=== PATIENT | male | born 1950 | race Caucasian/White ===

== ENCOUNTER 2018-04-02 20:09 | Emergency (ER) | payer MEDICARE, OTHER, BC ==
[2018-04-02 20:24] VITALS: BP 144/70; PULSE 86; RESP 20; TEMP 98; O2SAT 95
--- NOTE | 2018-04-02 20:52 | PD ---
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 They are waiting on the pathology they are unsure as to whether it is cancerous or benign it was done by Dr. Bush at the outpatient urology and with [facility] surgery the bag had moments where did not drain prior to the patient being discharged but then apparently the back was draining it had been hematuria the entire time. Patient has no other prostate history he has no other problem with urology just the first time that he had a tumor discovered and now had the surgery today main complaint is obstruction drinking a lot of fluids to help relieve the symptoms however now his bladder is distended and there is no output for hours into his foot pain is localized suprapubically pressure-like worsening PFSH Past Medical History Cardiac Catheterization: Yes Cardiovascular Problems: Yes (STENTS) Diabetes: Yes Patient Takes Glucophage: Yes Diminished Hearing: Yes Hypertension: Yes Tetanus Vaccination: Unknown Influenza Vaccination: Yes Past Surgical History Cholecystectomy: Yes (2010) Coronary Stent: Yes (2015) Genitourinary Surgery: Yes (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 HEAD: Atraumatic. Normocephalic. EYES: Pupils equal and round. No scleral icterus. No injection or drainage. ENT: No nasal bleeding or discharge. Mucous membranes pink and moist. NECK: Trachea midline. No JVD. CARDIOVASCULAR: Regular rate and rhythm. RESPIRATORY: No accessory muscle use. Clear to auscultation. Breath sounds equal bilaterally. GASTROINTESTINAL: Abdomen--> tenderness to suprapubic area mildly distended Wisdom in penis clots irrigated MUSCULOSKELETAL: Extremities without clubbing, cyanosis, or edema. No obvious deformities. NEUROLOGICAL: Awake and alert. No obvious cranial nerve deficits. Motor grossly within normal limits. Five out of 5 muscle strength in the arms and legs. Normal speech. PSYCHIATRIC: Appropriate mood and affect; insight and judgment normal. Data Data Last Documented VS Vital Signs Date Time Temp Pulse Resp B/P (MAP) Pulse Ox O2 Delivery O2 Flow Rate FiO2 04/02/18 22:13 16 04/02/18 20:24 98.0 86 144/70 (94) 95 Orders Orders Urinary Catheter Insert/Apply (04/02/18 20:33) Urinalysis - C+S If Indicated (04/02/18 21:03) Morphine Inj (Morphine Inj) (04/02/18 21:45) MDM Medical Decision Making Medical Screen Exam Complete: Yes Emergency Medical Condition: Yes Medical Record Reviewed: Yes Differential Diagnosis Possible clot over his three-way Wisdom due to postprocedural bleeding versus Wisdom malfunction versus tumor obstruction versus vasospasm of the sphincter of the bladder versus clot inside the tubing of the Wisdom blocking the irrigation Narrative Course I changed his three-way Wisdom I irrigated in and pulled out a few clots with a 60 cc syringe clots in urine return after about an hour he has 200 cc of urine with tinges of red clots he feels much better I did a ultrasound of his abdomen there is no distention of his bladder minimal of 200 cc in the bladder see the Wisdom balloon on the ultrasound he is discharged follow-up with his urologist on Saturday I tell him call in the morning to let them know that he was in the ER tonight. Patient's abdomen is now soft nondistended he feels much better Diagnosis Primary Impression: Hematuria Qualified Codes: R31.9 - Hematuria, unspecified Additional Impression: Postoperative urinary retention Additional Instructions: Call your urologist in the morning let them know you are in the ER for urinary retention.. If the urine bag continues to drain clear urine follow-up with your appointment on Saturday. If you encounter any complications return immediately to the ER Disposition: 01 DISCHARGE HOME Condition: Good Thai Warren MD Apr 02, 2018 20:52
[2018-04-02] MEDS ORDERED: MORPHINE SULFATE 4 MG/ML INJ IV PUSH ONE (21:45)
[2018-04-02 22:13] VITALS: RESP 16
[2018-04-03 00:19] LABS: BACTERIA, URINE MOD /hpf; BILIRUBIN, URINE NEG (NEG); BLOOD, URINE LARGE (NEG); GLUCOSE,URINE NEG (NEG); KETONE, URINE NEG (NEG); MUCUS URINE FEW /lpf (OCC); NITRITE,URINE NEG (NEG); PH, URINE 6.5 (5.0-8.5); RENAL EPITHELIAL CELLS 7 /hpf; SQUAMOUS EPITHELIAL CELL URINE <1 /hpf (0-5); URINE LEUKOCYTE ESTERASE LARGE (NEG)
[2018-04-03 00:20] LABS: URINE COLOR RED (YELLW/STRAW)
== END 2018-04-02 23:45 | disposition home or self-care (01) ==
LOC: NEPE 20:09
DX: N99.89 Other postprocedural complications and disorders of genitourinary system (principal); R31.9 Hematuria, unspecified; R33.8 Other retention of urine; Y83.8 Other surgical procedures as the cause of abnormal reaction of the patient, or of later complication, without mention of misadventure at the time of the procedure
CPT/HCPCS: 51700; 81001; 87086; 96374; 99284; J2270